=== PATIENT | female | born 1980 | race Caucasian/White ===

== ENCOUNTER 2017-10-21 12:40 | Emergency (ER) | payer BC, OTHER ==
[~2017-10-21] VITALS: Ht 162.6 cm; Wt 54.9 kg
[2017-10-21 12:57] VITALS: TEMP 37; Ht 162.6 cm; Wt 54.9 kg
--- NOTE | 2017-10-21 13:35 | EMERGENCY ROOM VISIT NOTE ---
History Report prepared by Norma: Milana Machuca Under the Supervision of: Dr. Alf Guidry M.D. 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 She rates her pain a 6/10 in severity. She has not taken any medications for the pain. She notes that she has difficulty breathing. She has a history of kidney stones, sepsis, and UTI. She denies any recent fevers, leg pain or swelling, recent , and abdominal surgery. She denies any recent travel or car rides. She denies any recent urinary symptoms. Source of History: patient Onset: 2 weeks BUDGET RECORD CLERK Position: abdomen, other (left flank) Quality: other (05/06) Timing: worsening Associated Symptoms: + SOB, No urinary symptoms Review of Systems See HPI for pertinent positives & negatives. A total of 10 systems reviewed and were otherwise negative. Past Medical & Surgical Medical Problems: (1) History of kidney stones Surgical Problems: (1) H/O tubal ligation (2) H/O wisdom tooth extraction Family History Cancer Diabetes mellitus Endometriosis FH: HTN (hypertension) Social History Smoking Status: Current Every Day Smoker (1/2 pack a day) Alcohol Use: none Drug Use: none Marital Status: Housing Status: lives with significant other Occupation Status: employed Current/Historical Medications No Active Prescriptions or Reported Meds Allergies Coded Allergies: Penicillins (Verified Allergy, Unknown, RASH, 11/10/15) Uncoded Allergies: ORAL CONTRACEPTIVES (Allergy, Unknown, STROKE LIKE SYMPTOMS, 12/20/14) Physical Exam Vital Signs Date Time Temp Pulse Resp B/P (MAP) Pulse Ox O2 Delivery O2 Flow Rate FiO2 10/21/17 13:57 76 16 121/91 100 Room Air 10/21/17 12:57 37.0 103 16 129/88 100 Room Air Physical Exam GENERAL: Patient is a healthy-appearing well-nourished 37 year old female. HEAD: Normocephalic atraumatic EYES: Ocular movements intact pupils equal and react to light OROPHARYNX mucous membranes are moist no exudates present no erythema or edema present NECK: Supple no nuchal rigidity CHEST: Good equal expansion LUNGS: Clear and equal to auscultation CARDIAC: Normal S1 and S2 ABDOMEN: Soft nontender no guarding BACK: No CVA tenderness EXTREMITIES: No pain upon palpation normal muscle strength in all groups no clubbing cyanosis or edema NEURO: Patient is following commands and answering questions appropriately. Alert and oriented x3 Cranial Nerves 2-12 grossly intact Medical Decision & Procedures ER Provider Diagnostic Interpretation: Radiology results as stated below per my review and radiologist interpretation: CT OF THE ABDOMEN AND PELVIS WITHOUT CONTRAST, STONE PROTOCOL CLINICAL HISTORY: Left flank pain. COMPARISON STUDY: CT of the abdomen and pelvis March 05, 2015. TECHNIQUE: Helical axial images of the abdomen and pelvis were obtained without IV or oral contrast according to renal stone protocol. A dose lowering technique was utilized adhering to the principles of ALARA. FINDINGS: No renal, ureteral or bladder calculi are present. There is no hydronephrosis or hydroureter. Evaluation of the remainder of the abdomen and pelvis is suboptimal on this unenhanced exam. Unenhanced images of liver, spleen, adrenal glands and pancreas are normal. There is no evidence for a bowel obstruction. The appendix is normal. The ovaries are not enlarged. Trace fluid within the pelvis is likely physiologic. There is no lymphadenopathy. No suspicious skeletal lesions are identified. IMPRESSION: 1. No urinary calculi or hydronephrosis. 2. No acute process within the abdomen or pelvis on unenhanced exam. 3. Trace free fluid within pelvis which is likely physiologic. Electronically signed by: Ronny Dan M.D. 10/21/2017 2:38 PM Dictated Date/Time: 10/21/2017 2:34 PM Laboratory Results 10/21/17 13:31 Red Blood Count 4.37, Mean Corpuscular Volume 95.0, Mean Corpuscular Hemoglobin 32.3, Mean Corpuscular Hemoglobin Concent 34.0, Mean Platelet Volume 10.7, Neutrophils (%) (Auto) 59.8, Lymphocytes (%) (Auto) 29.8, Monocytes (%) (Auto) 9.4, Eosinophils (%) (Auto) 0.5, Basophils (%) (Auto) 0.4, Neutrophils # (Auto) 6.09, Lymphocytes # (Auto) 3.04, Monocytes # (Auto) 0.96, Eosinophils # (Auto) 0.05, Basophils # (Auto) 0.04 11/25/17 13:31 Test 10/21/17 13:31 White Blood Count 10.19 K/uL (4.8-10.8) Red Blood Count 4.37 M/uL (4.2-5.4) Hemoglobin 14.1 g/dL (12.0-16.0) Hematocrit 41.5 % (37-47) Mean Corpuscular Volume 95.0 fL (80-100) Mean Corpuscular Hemoglobin 32.3 pg (25-34) Mean Corpuscular Hemoglobin Concent 34.0 g/dl (32-36) Platelet Count 276 K/uL (130-400) Mean Platelet Volume 10.7 fL (7.4-10.4) Neutrophils (%) (Auto) 59.8 % Lymphocytes (%) (Auto) 29.8 % Monocytes (%) (Auto) 9.4 % Eosinophils (%) (Auto) 0.5 % Basophils (%) (Auto) 0.4 % Neutrophils # (Auto) 6.09 K/uL (1.4-6.5) Lymphocytes # (Auto) 3.04 K/uL (1.2-3.4) Monocytes # (Auto) 0.96 K/uL (0.11-0.59) Eosinophils # (Auto) 0.05 K/uL (0-0.5) Basophils # (Auto) 0.04 K/uL (0-0.2) RDW Standard Deviation 43.4 fL (36.4-46.3) RDW Coefficient of Variation 12.5 % (11.5-14.5) Immature Granulocyte % (Auto) 0.1 % Immature Granulocyte # (Auto) 0.01 K/uL (0.00-0.02) Urine Color YELLOW Urine Appearance CLEAR (CLEAR) Urine pH 6.5 (4.5-7.5) Urine Specific [place] 1.013 (1.000-1.030) Urine Protein NEG (NEG) Urine Glucose (UA) NEG (NEG) Urine Ketones TRACE (NEG) Urine Occult Blood NEG (NEG) Urine Nitrite NEG (NEG) Urine Bilirubin NEG (NEG) Urine Urobilinogen NEG (NEG) Urine Leukocyte Esterase TRACE (NEG) Urine WBC (Auto) 1-5 /hpf (0-5) Urine RBC (Auto) 0-4 /hpf (0-4) Urine Hyaline Casts (Auto) 0 /lpf (0-5) Urine Epithelial Cells (Auto) >30 /lpf (0-5) Urine Bacteria (Auto) NEG (NEG) Urine Test NEG (NEG) Anion Gap 8.0 mmol/L (3-11) Est Creatinine Clear Calc Drug Dose 85.9 ml/min Estimated GFR () 112.4 Estimated GFR (Non- 97.0 BUN/Creatinine Ratio 9.4 (10-20) Calcium Level 8.6 mg/dl (8.5-10.1) Total Bilirubin 0.4 mg/dl (0.2-1) Direct Bilirubin 0.1 mg/dl (0-0.2) Aspartate Amino Transf (AST/SGOT) 13 U/L (15-37) Alanine Aminotransferase (ALT/SGPT) 15 U/L (12-78) Alkaline Phosphatase 64 U/L (45-117) Total Protein 7.8 gm/dl (6.4-8.2) Albumin 4.2 gm/dl (3.4-5.0) Lipase 83 U/L (73-393) Labs reviewed by ED physician. ED Course 1306: Past medical records reviewed. The patient was evaluated in room C1. A complete history and physical examination was performed. 1447: Ordered Citrate of Magnesia Soln 296 mL PO. 1450: I reassessed the patient at this time. She is feeling better and resting comfortably. I discussed the results and treatment plan with the patient. I answered all pertaining questions that she had. She expressed understanding and verbalized agreement. The patient will be discharged home. Medical Decision Prior records/ancillary studies reviewed. Triage Nursing notes reviewed. The patient's history was concerning for abdominal pain. Differential diagnosis: Etiologies such as appendicitis, diverticulitis, PUD, biliary pathology, UTI, pancreatitis, obstruction, mesenteric ischemia, aortic pathology, infections, inflammatory bowel disease, renal colic, as well as others were entertained. This is a 37-year-old female who presents emergency department complaining of left-sided flank pain. The patient has a history of kidney stones. I will note that she does not appear to have a urinary tract infection. Has a normal white blood cell count renal renal profile normal liver profile normal lipase. The patient does appear to have a large stool burden on her CAT scan therefore I recommended for the patient that she receive a magnesium citrate cleanout. In addition serial abdominal examinations were performed on the patient in the emergency department and at no tender the patient exhibited a surgical abdomen or even abdominal tenderness. I do feel that the patient is well enough to be discharged home for follow-up with gastroenterology. Patient was in agreement with the treatment plan. Medication Reconcilliation Current Medication List: was personally reviewed by me Blood Pressure Screening Patient's blood pressure: Normal blood pressure Impression Primary Impression: Left flank pain Additional Impression: Constipation Scribe Attestation The scribe's documentation has been prepared under my direction and personally reviewed by me in its entirety. I confirm that the note above accurately reflects all work, treatment, procedures, and medical decision making performed by me. Departure Information Dispostion Home / Self-Care Prescriptions No Active Prescriptions or Reported Meds Referrals Jerson Enrique M.D.(ALEKSANDRA) (PCP) Forms HOME CARE DOCUMENTATION FORM, IMPORTANT VISIT INFORMATION, School Instructions, Work Instructions Patient Instructions ED Constipation, ED Flank Pain Uncertain Cause, My [facility] Additional Instructions Take 1/2 bottle of Mag Citrate Repeat second half in six hours Follow up with Dr Nuñez's office for continued pain You have been examined and treated today on an emergency basis only. This is not a substitute for, or an effort to provide, complete comprehensive medical care. It is impossible to recognize and treat all injuries or illnesses in a single emergency department visit. It is therefore important that you follow up closely with Dr Enrique. Call as soon as possible for an appointment. Thank you for your time and consideration. I look forward to speaking with you again soon. Please don't hesitate to call us if you have any questions. Problem Qualifiers Additional Impression: Constipation Constipation type: unspecified constipation type Qualified Codes: K59.00 - Constipation, unspecified
[2017-10-21 13:54] LABS: BASO % 0.4 %; BASO ABS # 0.04 K/uL (0-0.2); COMPLETE YES; EOS % 0.5 %; HEMATOCRIT 41.5 % (37-47); IG% 0.1 %; LYMPH % 29.8 %; LYMPH ABS # 3.04 K/uL (1.2-3.4); MEAN CORPUSCULAR HEMOGLOBIN 32.3 pg (25-34); MEAN PLATELET VOLUME 10.7 fL (7.4-10.4); MONO % 9.4 %; NEUT % 59.8 %; PLATELET COUNT 276 K/uL (130-400); RED BLOOD COUNT 4.37 M/uL (4.2-5.4); WHITE BLOOD COUNT 10.19 K/uL (4.8-10.8)
[2017-10-21 13:56] LABS: URINE APPEARANCE CLEAR (CLEAR); URINE BILIRUBIN NEG (NEG); URINE COLOR YELLOW; URINE EPITHELIAL CELL AUTO >30 /lpf (0-5); URINE NITRITE NEG (NEG); URINE PH 6.5 (4.5-7.5); URINE SPECIFIC GRAVITY 1.013 (1.000-1.030); UROBILINOGEN NEG (NEG)
[2017-10-21 13:59] LABS: MANUAL MICROSCOPIC REQUIRED? NO; REVIEW REQ? NO
[2017-10-21 14:11] LABS: BUN/CREATININE RATIO 9.4 (10-20); CALCIUM 8.6 mg/dl (8.5-10.1); CREATININE 0.79 mg/dl (0.60-1.20); POTASSIUM 3.5 mmol/L (3.5-5.1)
--- NOTE | 2017-10-21 14:40 | DIAGNOSTIC IMAGING REPORT ---
CT OF THE ABDOMEN AND PELVIS WITHOUT CONTRAST, STONE PROTOCOL CLINICAL HISTORY: Left flank pain. COMPARISON STUDY: CT of the abdomen and pelvis March 05, 2015. TECHNIQUE: Helical axial images of the abdomen and pelvis were obtained without IV or oral contrast according to renal stone protocol. A dose lowering technique was utilized adhering to the principles of ALARA. FINDINGS: No renal, ureteral or bladder calculi are present. There is no hydronephrosis or hydroureter. Evaluation of the remainder of the abdomen and pelvis is suboptimal on this unenhanced exam. Unenhanced images of liver, spleen, adrenal glands and pancreas are normal. There is no evidence for a bowel obstruction. The appendix is normal. The ovaries are not enlarged. Trace fluid within the pelvis is likely physiologic. There is no lymphadenopathy. No suspicious skeletal lesions are identified. IMPRESSION: 1. No urinary calculi or hydronephrosis. 2. No acute process within the abdomen or pelvis on unenhanced exam. 3. Trace free fluid within pelvis which is likely physiologic. Electronically signed by: Ronny Dan M.D. 10/21/2017 2:38 PM Dictated Date/Time: 10/21/2017 2:34 PM
[2017-10-21] MEDS ORDERED: MAGNESIUM CITRATE 296 ML/BTL PO STA (14:47)
[2017-10-21 15:25] VITALS: BP 104/73; PULSE 80; O2SAT 97
== END 2017-10-21 15:25 | disposition home or self-care (01) ==
LOC: C.EDB 12:41 → C.EDC 15:25
DX: R10.32 Left lower quadrant pain (principal); R10.12 Left upper quadrant pain; K59.00 Constipation, unspecified; F17.200 Nicotine dependence, unspecified, uncomplicated; Z87.442 Personal history of urinary calculi; Z98.51 Tubal ligation status; Z83.3 Family history of diabetes mellitus; Z82.49 Family history of ischemic heart disease and other diseases of the circulatory system

== ENCOUNTER 2017-11-29 11:00 | Emergency (ER) | payer BC ==
[~2017-11-29] VITALS: Ht 162.6 cm; Wt 54.7 kg
[2017-11-29 11:03] VITALS: TEMP 36.4; Ht 162.6 cm; Wt 54.7 kg
[2017-11-29 11:17] VITALS: O2SAT 98
--- NOTE | 2017-11-29 11:36 | EMERGENCY ROOM VISIT NOTE ---
History Report prepared by Norma: Miki Robbins Under the Supervision of: Dr. Chase Kerr M.D. First contact with patient: 11:07 Chief Complaint: CHEST PAIN Stated Complaint: LEFT ARM,CHEST PAIN,NAUSEA Nursing Triage Summary: LEft arm and chest pain since the middle of last week. Patient states the pain has been consistent but worse today. Patient states her job is quite stressful at this time. History of Present Illness The patient is a 37 year old white female with a past medical history of a uterine ablation who presents to the ED with a cc of worsening left sided dull chest pain beginning 1 week ago. Positive radiation of pain into left armpit and down left arm. Negative fevers, chills, cough, shortness of breath, skin changes, leg swelling, breast tenderness, or breast discharge. She notes that she felt diaphoretic and nauseated yesterday, but does not today. She notes some stress over the holidays with her personal life. Her father a history of angina, but not any heart attacks. She denies any blood clots, recent travel, and control use. She smokes a half pack of cigarettes everyday. She is only left handed with regard to writing. Source of History: patient Onset: 1 week ago Position: chest (left) Symptom Intensity: moderate Quality: dull Timing: worsening Associated Symptoms: No fevers, No chills, No diaphoresis, No cough, No SOB , No nausea Note: She denies any breast tenderness, breast discharge, or leg swelling. She is experiencing radiation of pain into her left armpit and down her left arm Review of Systems See HPI for pertinent positives and negatives. A total of ten systems were reviewed and were otherwise negative. Past Medical & Surgical Medical Problems: (1) History of kidney stones Surgical Problems: (1) H/O tubal ligation (2) H/O wisdom tooth extraction Family History Cancer Diabetes mellitus Endometriosis FH: HTN (hypertension) Social History Smoking Status: Current Every Day Smoker Alcohol Use: none Drug Use: none Marital Status: Housing Status: lives with significant other Occupation Status: employed Current/Historical Medications No Active Prescriptions or Reported Meds Allergies Coded Allergies: Penicillins (Verified Allergy, Unknown, RASH, 11/29/17) Uncoded Allergies: ORAL CONTRACEPTIVES (Allergy, Unknown, STROKE LIKE SYMPTOMS, 12/20/14) Physical Exam Vital Signs Date Time Temp Pulse Resp B/P (MAP) Pulse Ox O2 Delivery O2 Flow Rate FiO2 11/29/17 13:29 85 16 129/81 99 11/29/17 12:32 83 11/29/17 12:09 83 15 125/87 100 Room Air 11/29/17 11:17 98 Room Air 11/29/17 11:16 98 Room Air 11/29/17 11:03 36.4 94 16 131/89 100 Room Air Physical Exam GENERAL: Awake, alert, well-appearing, NAD HENT: Normocephalic, atraumatic. EYES: Normal conjunctiva. Sclera non-icteric. NECK: Supple. No nuchal rigidity. FROM. RESPIRATORY: CTAB, no rhonchi, wheezing, crackles CARDIAC: RRR, no MRG ABDOMEN: Soft, NTND, BS+ MSK: No chest wall TTP, no LE edema. Mild reproducible tenderness with left arm abduction. NEURO: GCS 15, CN 2-12 intact, moves all 4s on command SKIN: No rash or jaundice noted. Medical Decision & Procedures ER Provider Diagnostic Interpretation: Radiology results as stated below per my review and radiologist interpretation: CHEST ONE VIEW PORTABLE CLINICAL HISTORY: chest pain dyspnea COMPARISON STUDY: 03/05/2015 FINDINGS: The bones soft tissues and hemidiaphragms are normal. The cardiomediastinal silhouette is normal. The lungs are clear. The pulmonary vasculature is normal. IMPRESSION: Negative chest. The above report was generated using voice recognition software. It may contain grammatical, syntax or spelling errors. Electronically signed by: Leroy Rodríguez M.D. 11/29/2017 11:59 AM Dictated Date/Time: 11/29/2017 11:59 AM Laboratory Results 11/29/17 11:15 Red Blood Count 4.53, Mean Corpuscular Volume 94.5, Mean Corpuscular Hemoglobin 32.2, Mean Corpuscular Hemoglobin Concent 34.1, Mean Platelet Volume 11.1, Neutrophils (%) (Auto) 51.4, Lymphocytes (%) (Auto) 37.2, Monocytes (%) (Auto) 9.2, Eosinophils (%) (Auto) 1.3, Basophils (%) (Auto) 0.8, Neutrophils # (Auto) 4.06, Lymphocytes # (Auto) 2.94, Monocytes # (Auto) 0.73, Eosinophils # (Auto) 0.10, Basophils # (Auto) 0.06 11/29/17 11:15 Test 11/29/17 11:15 White Blood Count 7.90 K/uL (4.8-10.8) Red Blood Count 4.53 M/uL (4.2-5.4) Hemoglobin 14.6 g/dL (12.0-16.0) Hematocrit 42.8 % (37-47) Mean Corpuscular Volume 94.5 fL (80-100) Mean Corpuscular Hemoglobin 32.2 pg (25-34) Mean Corpuscular Hemoglobin Concent 34.1 g/dl (32-36) Platelet Count 320 K/uL (130-400) Mean Platelet Volume 11.1 fL (7.4-10.4) Neutrophils (%) (Auto) 51.4 % Lymphocytes (%) (Auto) 37.2 % Monocytes (%) (Auto) 9.2 % Eosinophils (%) (Auto) 1.3 % Basophils (%) (Auto) 0.8 % Neutrophils # (Auto) 4.06 K/uL (1.4-6.5) Lymphocytes # (Auto) 2.94 K/uL (1.2-3.4) Monocytes # (Auto) 0.73 K/uL (0.11-0.59) Eosinophils # (Auto) 0.10 K/uL (0-0.5) Basophils # (Auto) 0.06 K/uL (0-0.2) RDW Standard Deviation 43.7 fL (36.4-46.3) RDW Coefficient of Variation 12.6 % (11.5-14.5) Immature Granulocyte % (Auto) 0.1 % Immature Granulocyte # (Auto) 0.01 K/uL (0.00-0.02) Prothrombin Time 9.9 SECONDS (9.0-12.0) Prothromb Time International Ratio 0.9 (0.9-1.1) Activated Partial Thromboplast Time 26.2 SECONDS (21.0-31.0) Partial Thromboplastin Ratio 1.0 Anion Gap 6.0 mmol/L (3-11) Est Creatinine Clear Calc Drug Dose 82.7 ml/min Estimated GFR () 107.5 Estimated GFR (Non- 92.7 BUN/Creatinine Ratio 6.8 (10-20) Calcium Level 9.2 mg/dl (8.5-10.1) Troponin I < 0.015 ng/ml (0-0.045) Laboratory results reviewed by me Medications Administered Medications (Trade) Dose Ordered Sig/Buddy Route Start Time Stop Time Status Last Admin Dose Admin Acetaminophen (Tylenol Tab) 1,000 mg NOW STAT PO 11/29/17 11:54 11/29/17 11:56 DC 11/29/17 12:07 1,000 MG Ketorolac Tromethamine (Toradol Inj) 30 mg NOW STAT IV 11/29/17 11:54 11/29/17 11:56 DC 11/29/17 12:07 30 MG ECG Indication: chest pain Rate (beats per minute): 113 Rhythm: sinus tachycardia Findings: other (Normal intervals, normal axis, questionable TWI in lead III, not in contiguous leads, no other STS changes or TWI) ED Course 1107: The patient was evaluated in room C10. A complete history and physical exam was performed. 1300: I reevaluated the patient. Discussed results and discharge instructions: She verbalized understanding and agreement. She will follow up with her PCP as an outpatient. The patient is ready for discharge. Medical Decision The patient is a 37 year old white female with a past medical history of a uterine ablation who presents to the ED with a cc of worsening left sided dull chest pain beginning 1 week ago. Positive radiation of pain into left armpit and down left arm. Negative fevers, chills, cough, shortness of breath, skin changes, leg swelling, breast tenderness, or breast discharge. Differential diagnosis: Etiologies such as cardiac ischemia, aortic dissection, pulmonary embolism, pneumonia, pneumothorax, musculoskeletal, infections, pericarditis, myocarditis , esophageal rupture, gastrointestinal, as well as others were entertained. Patient was seen and evaluated the bedside. Patient did complain of some left- sided chest pain. Patient did not have any reproducible chest pain or skin changes. Patient denied any breast tenderness or discharge. Of note the patient did have some purposeful pain with abduction of the left shoulder. Of note the patient is also left-handed. Patient is neurovascular intact distally. Patient did have an EKG which is initially tachycardic other her tachycardia resolved either spontaneously or with pain control. Patient did not have any ischemic changes seen on her EKG. Patient's chest x-ray is negative. Troponin negative. Patient has a heart score less than 4 so less likely ACS and is likely her low risk and can be seen as an outpatient. Patient is PE RC of 0 with a resolution of her tachycardia. Given the patient' s history and physical exam I think PE is less likely. Patient's pain resolved. Patient denies any exertional chest pain or dyspnea on exertion. Patient is not having lower extremity swelling. She was told to follow-up with her PCP was also counseled on smoking cessation. Patient was given strict follow -up, discharge, and return precautions. All questions were answered. Patient was deemed suitable for outpatient follow-up at this time. Patient agreed with the plan of care and was safely discharged home. Medication Reconcilliation Current Medication List: was personally reviewed by me Blood Pressure Screening Patient's blood pressure: Normal blood pressure Blood pressure disposition: Did not require urgent referral Impression Primary Impression: Left sided chest pain Additional Impression: Encounter for smoking cessation counseling Scribe Attestation The scribe's documentation has been prepared under my direction and personally reviewed by me in its entirety. I confirm that the note above accurately reflects all work, treatment, procedures, and medical decision making performed by me. Departure Information Dispostion Home / Self-Care Prescriptions No Active Prescriptions or Reported Meds Referrals Jerson Enrique M.D.(ALEKSANDRA) (PCP) Forms Call Back Authorization, HOME CARE DOCUMENTATION FORM, IMPORTANT VISIT INFORMATION Patient Instructions Chest Pain - [facility], ED Smoking Cessation, [facility] Additional Instructions Please return to the emergency department if you have worsening or recurrent symptoms not amenable to at-home treatment. Please call for a follow-up appointment with her primary care physician. Please take your medications as prescribed. If you have other concerns and/or complaints please feel free to also call your primary care physician's office or return the ED for further evaluation, management, and treatment. Please consider smoking cessation. You may take 600 mg Ibuprofen every 6 hours as needed for pain with food for no more than 2 consecutive days. You may take tylenol 1000 mg every 6 hours as needed for pain. You may take motrin and tylenol separately or at the same time. You have been examined and treated today on an emergency basis only. This is not a substitute for, or an effort to provide, complete comprehensive medical care. It is impossible to recognize and treat all injuries or illnesses in a single emergency department visit. It is therefore important that you follow up closely with [facility], your PCP, and/or your specialist(s). Call as soon as possible for an appointment. Thank you for your time and consideration. I look forward to speaking with you again soon. Please don't hesitate to call us if you have any questions. Problem Qualifiers
[2017-11-29] MEDS ORDERED: KETOROLAC TROMETHAMINE 30 MG/ML VIAL IV STA (11:54)
[2017-11-29] MEDS ORDERED: ACETAMINOPHEN 500 MG TAB PO STA (11:54)
--- NOTE | 2017-11-29 12:01 | DIAGNOSTIC IMAGING REPORT ---
CHEST ONE VIEW PORTABLE CLINICAL HISTORY: chest pain dyspnea COMPARISON STUDY: 03/05/2015 FINDINGS: The bones soft tissues and hemidiaphragms are normal. The cardiomediastinal silhouette is normal. The lungs are clear. The pulmonary vasculature is normal. IMPRESSION: Negative chest. The above report was generated using voice recognition software. It may contain grammatical, syntax or spelling errors. Electronically signed by: Leroy Rodríguez M.D. 11/29/2017 11:59 AM Dictated Date/Time: 11/29/2017 11:59 AM
[2017-11-29 12:10] LABS: BASO % 0.8 %; BASO ABS # 0.06 K/uL (0-0.2); EOS % 1.3 %; HEMATOCRIT 42.8 % (37-47); HEMOGLOBIN 14.6 g/dL (12.0-16.0); IG# 0.01 K/uL (0.00-0.02); LYMPH % 37.2 %; LYMPH ABS # 2.94 K/uL (1.2-3.4); MEAN CELL VOLUME 94.5 fL (80-100); MEAN CORPUSCULAR HEMOGLOBIN 32.2 pg (25-34); MEAN CORPUSCULAR HGB CONC 34.1 g/dl (32-36); MEAN PLATELET VOLUME 11.1 fL (7.4-10.4); MONO % 9.2 %; MONO ABS # 0.73 K/uL (0.11-0.59); NEUT % 51.4 %; NEUT ABS # 4.06 K/uL (1.4-6.5); PLATELET COUNT 320 K/uL (130-400); RED CELL DISTRIBUTION WIDTH CV 12.6 % (11.5-14.5); RED CELL DISTRIBUTION WIDTH SD 43.7 fL (36.4-46.3)
[2017-11-29 12:20] LABS: INR 0.9 (0.9-1.1); PTT PATIENT 26.2 SECONDS (21.0-31.0)
[2017-11-29 12:22] LABS: BLOOD UREA NITROGEN 6 mg/dl (7-18); CALCIUM 9.2 mg/dl (8.5-10.1); CARBON DIOXIDE 25 mmol/L (21-32); CREATININE 0.82 mg/dl (0.60-1.20); GLUCOSE 98 mg/dl (70-99); POTASSIUM 3.4 mmol/L (3.5-5.1); SODIUM 139 mmol/L (136-145)
[2017-11-29 13:29] VITALS: BP 129/81; PULSE 85; O2SAT 99
== END 2017-11-29 13:26 | disposition home or self-care (01) ==
LOC: C.EDB 11:01 → C.EDC 13:26
DX: R07.9 Chest pain, unspecified (principal); Z71.6 Tobacco abuse counseling; F17.210 Nicotine dependence, cigarettes, uncomplicated; Z80.9 Family history of malignant neoplasm, unspecified; Z83.3 Family history of diabetes mellitus; Z82.49 Family history of ischemic heart disease and other diseases of the circulatory system